=== PATIENT | female | born 1985 | race Caucasian/White ===

== ENCOUNTER 2016-11-12 17:56 | Outpatient (CLI) | payer SELFPAY ==
[2016-11-12 18:36] VITALS: BP 99/53
[2016-11-12] MEDS ORDERED: LACTATED RINGERS 500 ML IV ONE (18:44)
--- NOTE | 2016-11-13 07:52 | Ultrasound Report ---
ULTRASOUND BIOPHYSICAL PROFILE: History: labor, low heart tones Technique: Transabdominal ultrasound with Doppler interrogation. 2 - breathing movements 2 - movements 2 - posture and tone 2 - Qualitative amniotic fluid volume 8 - TOTAL SCORE OF POSSIBLE 8 Heart Rate (bpm) 127
== END 2016-11-12 20:20 | disposition home or self-care (01) ==
LOC: TRG 17:56
PROVIDERS: ATTEND Obstetrics & Gynecology
DX: O47.03 False labor before 37 completed weeks of gestation, third trimester (principal); Z3A.30 30 weeks gestation of pregnancy
CPT/HCPCS: 76819

== ENCOUNTER 2017-01-13 00:57 | Outpatient (CLI) | payer OTHER ==
[2017-01-13 01:25] VITALS: BP 116/71
[2017-01-13] MEDS ORDERED: VISTARIL PO ONE (03:31)
== END 2017-01-13 03:41 | disposition home or self-care (01) ==
LOC: TRG 00:57
PROVIDERS: ATTEND Obstetrics & Gynecology Gynecology
DX: O47.1 False labor at or after 37 completed weeks of gestation (principal); Z3A.39 39 weeks gestation of pregnancy
CPT/HCPCS: Q0177

== ENCOUNTER 2017-01-13 05:43 | Inpatient (IN) | payer OTHER ==
[2017-01-13] MEDS ORDERED: LACTATED RINGERS 1,000 ML ONE ×2 (06:33→06:39)
[2017-01-13] MEDS ORDERED: MINERAL OIL PO PRN (06:45)
[2017-01-13] MEDS ORDERED: BRETHINE IVP PRN (06:45)
[2017-01-13] MEDS ORDERED: ePHEDrine SULFATE IV PRN ×2 (06:45→08:20)
[2017-01-13] MEDS ORDERED: SUBLIMAZE IV PRN (06:45)
[2017-01-13] MEDS ORDERED: ZOFRAN IV PRN (06:45)
[2017-01-13] MEDS ORDERED: XYLOCAINE 2% INFILTRATI ONE (06:45)
[2017-01-13] MEDS ORDERED: BRETHINE SUB-Q PRN (06:45)
--- NOTE | 2017-01-13 06:45 | History and Physical Report ---
History of Present Illness Date of examination: 01/13/17 Date of admission: 01/13/17 06:25 Chief complaint: Painful contractions History of present illness: 31-year-old 001 at 39 weeks presents in active labor, she is a [facility] patient. course has been unremarkable, she is GBS negative and passed her 1 hour GTT Past History Past Medical History: no pertinent history Past Surgical History: cholecystectomy [employer] History: denies: cancer, chlamydia, gonorrhea, hepatitis B, hepatitis C, herpes, HIV, syphilis Social history: , full code. denies: smoking, alcohol abuse, prescription drug abuse, IV drug use - Obstetrical History Expected Date of Delivery: 01/18/17 Actual Gestation: 39 Week(s) 2 Day(s) : 2 Para: 1 (7 pound infant 6 years ago) Medications and Allergies Allergies Allergy/AdvReac Type Severity Reaction Status Date / Time No Known Allergies Allergy Verified 06/08/14 19:35 Home Medications Medication Instructions Recorded Confirmed Last Taken Type Acetaminophen/Codeine 1 tab PO Q6H PRN #14 tab 06/09/14 Unknown Rx [Acetaminophen-Codeine #3 TAB] Review of Systems Constitutional: no fever, no chills, no chronic headaches Eyes: no blurred vision, no photophobia Cardiovascular: no chest pain, no orthopnea, no lightheadedness, no shortness of breath, no dyspnea on exertion, no high blood pressure, no decreased exercise tolerance Respiratory: no hemoptysis, no shortness of breath, no dyspnea on exertion Gastrointestinal: abdominal pain, no nausea, no vomiting, no indigestion Genitourinary: contractions, no vaginal bleeding, no vaginal discharge, no leakage of fluid - Vital Signs Vital signs: Vital Signs Pulse Pulse Ox 89 98 01/13/17 05:50 01/13/17 05:50 Temp Pulse Resp BP Pulse Ox 98.3 F 89 121/76 97 01/13/17 06:03 01/13/17 06:12 01/13/17 05:51 01/13/17 06:12 - Physical Exam Cardiovascular: Regular rate Lungs: Positive: Clear to auscultation, Normal air movement Abdomen: Positive: normal appearance, soft. Negative: distention, tenderness, guarding, rigidity Genitourinary (Female): Positive: normal external genitalia Uterus: Positive: enlarged (EFW ~ 3600). Negative: tender Extremities: Positive: normal - Obstetrical FHR: category 1 Cervical Dilatation: 6 (Per RN Exam) Results All other labs normal. Assessment and Plan A: 31-year-old she 2 P1 001 at 39 weeks in active labor -Cat 1 tracing P: -Admit -Routine labs -Epidural prn -Anticipate - Patient Problems (1) 39 weeks gestation of Current Visit: Yes Status: Acute (2) Active labor at term Current Visit: Yes Status: Acute
[2017-01-13] MEDS ORDERED: PITOCin/NS 20 UNIT/1000ML DRIP 20 UNITS/1,000 ML BAG IV SCH ×2 (07:00→12:00)
[2017-01-13] MEDS ORDERED: PITOCin/NS 30 UNIT/500ML 30 UNITS/500 ML BAG IV SCH ×2 (07:00)
[2017-01-13 07:27] LABS: Hematocrit 37.6 % (30.3-42.9); Mean Corpuscular HGB Conc 35 % (30-34); Mean Corpuscular Hemoglobin 34 pg (28-32); Mean Corpuscular Volume 98 fl (79-97); Platelet Count 208 K/mm3 (140-440); Red Blood Count 3.83 M/mm3 (3.65-5.03); Red Cell Distribution Width 13.5 % (13.2-15.2)
[2017-01-13] MEDS: LACTATED RINGERS 1,000 ML IV SCH ×3 (07:44→09:59)
[2017-01-13] MEDS ORDERED: ePHEDrine SULFATE ONE (07:52)
[2017-01-13] MEDS ORDERED: NARCAN 2 MG/2 ML IV PRN (08:20)
--- NOTE | 2017-01-13 08:20 | Anesthesia Consultation ---
Anesthesia Consult and Med Hx Date of service: 01/13/17 - Airway Anesthetic Teeth Evaluation: Good ROM Head & Neck: Adequate Mental/Hyoid Distance: Adequate Mallampati Class: Class II Intubation Access Assessment: Probably Good - Pulmonary Exam CTA: Yes - Cardiac Exam Cardiac Exam: RRR - Pre-Operative Health Status ASA Pre-Surgery Classification: ASA3 Proposed Anesthetic Plan: Epidural, Spinal - Pulmonary Hx Asthma: No COPD: No Hx Pneumonia: No - Cardiovascular System Hx Hypertension: No Hx Heart Attack/AMI: No - Central Nervous System Hx Seizures: No Hx Psychiatric Problems: No - Endocrine Hx Renal Disease: No Hx End Stage Renal Disease: No Hx Hypothyroidism: No Hx Hyperthyroidism: No - Hematic Hx Anemia: No Hx Sickle Cell Disease: No - Other Systems Hx Alcohol Use: No Hx Cancer: No Hx Obesity: Yes (morbid, BMI > 40) - Additional Comments Anesthesia Medical History Comments: +IUP
[2017-01-13] MEDS ORDERED: fentaNYL-BUPIV 2 MCG/ML-0.125% 200 MCG/100 ML BAG EPIDURAL SCH (09:00)
--- NOTE | 2017-01-13 09:45 | Progress Note ---
Assessment and Plan - Patient Problems (1) 39 weeks gestation of Current Visit: Yes Status: Acute (2) Active labor at term Current Visit: Yes Status: Acute Subjective - Subjective Date of service: 01/13/17 Patient reports: new complaints, contractions, no vaginal bleeding Objective - Vital Signs Vital Signs: Vital Signs - 12hr 01/13/17 01/13/17 01/13/17 05:50 05:51 05:52 Temperature Pulse Rate 89 88 92 H Respiratory Rate Blood Pressure 121/76 O2 Sat by Pulse 98 97 97 Oximetry 01/13/17 01/13/17 01/13/17 05:57 06:02 06:03 Temperature 98.3 F Pulse Rate 83 79 Respiratory Rate Blood Pressure O2 Sat by Pulse 97 95 Oximetry 01/13/17 01/13/17 01/13/17 06:07 06:12 07:37 Temperature Pulse Rate 81 89 91 H Respiratory Rate Blood Pressure O2 Sat by Pulse 97 97 96 Oximetry 01/13/17 01/13/17 01/13/17 07:42 07:44 07:47 Temperature Pulse Rate 74 75 86 Respiratory Rate Blood Pressure O2 Sat by Pulse 96 93 99 Oximetry 01/13/17 01/13/17 01/13/17 07:52 07:54 07:57 Temperature Pulse Rate 82 76 Respiratory Rate Blood Pressure 109/59 O2 Sat by Pulse 96 78 L 98 Oximetry 01/13/17 01/13/17 01/13/17 08:00 08:02 08:03 Temperature 97.6 F Pulse Rate 78 83 87 Respiratory 18 Rate Blood Pressure 109/58 113/60 110/59 O2 Sat by Pulse 98 99 Oximetry 01/13/17 01/13/17 01/13/17 08:05 08:07 08:09 Temperature Pulse Rate 82 82 85 Respiratory Rate Blood Pressure 113/65 120/63 111/59 O2 Sat by Pulse 98 Oximetry 01/13/17 01/13/17 01/13/17 08:11 08:12 08:13 Temperature Pulse Rate 86 87 96 H Respiratory Rate Blood Pressure 104/58 98/50 O2 Sat by Pulse 98 Oximetry 01/13/17 01/13/17 01/13/17 08:15 08:16 08:17 Temperature Pulse Rate 88 67 60 Respiratory Rate Blood Pressure 96/47 82/41 83/42 O2 Sat by Pulse 96 Oximetry 0801/13/17 01/13/17 08:19 08:21 08:22 Temperature Pulse Rate 100 H 90 75 Respiratory Rate Blood Pressure 98/50 105/56 O2 Sat by Pulse 97 Oximetry 01/13/17 01/13/17 01/13/17 08:23 08:25 08:26 Temperature Pulse Rate 82 80 80 Respiratory 20 Rate Blood Pressure 103/55 104/58 104/58 O2 Sat by Pulse Oximetry 01/13/17 01/13/17 01/13/17 08:27 08:28 08:29 Temperature Pulse Rate 85 83 86 Respiratory Rate Blood Pressure 86/43 88/46 88/43 O2 Sat by Pulse 99 Oximetry 01/13/17 01/13/17 01/13/17 08:30 08:32 08:37 Temperature Pulse Rate 85 87 108 H Respiratory Rate Blood Pressure 89/42 O2 Sat by Pulse 98 96 Oximetry 01/13/17 01/13/17 01/13/17 08:42 08:43 08:47 Temperature Pulse Rate 95 H 98 H 95 H Respiratory Rate Blood Pressure 88/52 O2 Sat by Pulse 99 99 Oximetry 01/13/17 01/13/17 01/13/17 08:51 08:52 08:57 Temperature Pulse Rate 99 H 90 92 H Respiratory Rate Blood Pressure 87/53 O2 Sat by Pulse 79 L 99 99 Oximetry 01/13/17 01/13/17 01/13/17 08:58 09:02 09:14 Temperature Pulse Rate 96 H 92 H 87 Respiratory Rate Blood Pressure 81/43 109/53 O2 Sat by Pulse 99 Oximetry 01/13/17 09:29 Temperature Pulse Rate 82 Respiratory Rate Blood Pressure 93/56 O2 Sat by Pulse Oximetry - Exam FHR: category 1 Cervical Dilatation: 10 station: -1 - Labs Labs: Abnormal Labs 01/13/17 06:32 MCV 98 H MCH 34 H MCHC 35 H Laboratory Results - last 24 hr 01/13/17 01/13/17 06:32 06:32 WBC 11.0 RBC 3.83 Hgb 13.0 Hct 37.6 MCV 98 H MCH 34 H MCHC 35 H RDW 13.5 Plt Count 208 Blood Type O POSITIVE Antibody Screen Negative
[2017-01-13] MEDS ORDERED: CYTOTEC ONE (10:54)
[2017-01-13] MEDS ORDERED: METHERGINE IM ONE (10:54)
--- NOTE | 2017-01-13 11:05 | Procedure Note ---
OB Delivery Note - Delivery Date of Delivery: 01/13/17 Surgeon: JESSICA SANCHEZ Estimated blood loss: 500cc - Vaginal Delivery presentation: vertex Delivery position: OA Intrapartum events: none Delivery augmentation: rupture of membranes, pitocin Delivery monitor: external FHT, external uterine Route of delivery: Delivery placenta: spontaneous Delivery cord: 3 umbilical vessels Episiotomy: none Delivery laceration: none Anesthesia: epidural - A at 1 minute: 8 at 5 minutes: 9 Gender: Male (Time of delivery was 10:48 AM, weight was 10 pounds 1 or 4567 g)
[2017-01-13] MEDS ORDERED: TYLENOL PO PRN (11:06)
[2017-01-13] MEDS ORDERED: LANSINOH TP PRN (11:06)
[2017-01-13] MEDS ORDERED: BENADRYL PO PRN (11:06)
[2017-01-13] MEDS ORDERED: PHENERGAN PR PRN (11:06)
[2017-01-13] MEDS ORDERED: MILK OF MAGNESIA PO PRN (11:06)
[2017-01-13] MEDS ORDERED: NORCO 5/325 PO PRN (11:06)
[2017-01-13] MEDS ORDERED: TUCKS PAD TP PRN (11:06)
[2017-01-13] MEDS ORDERED: DULCOLAX PR PRN (11:06)
[2017-01-13] MEDS ORDERED: PHENERGAN PO PRN (11:06)
[2017-01-13] MEDS ORDERED: CYTOTEC PR ONE (11:06)
[2017-01-13] MEDS ORDERED: SODIUM CHLORIDE FLUSH SYRINGE 10 ML IV NR (12:00)
[2017-01-13] MEDS: MOTRIN PO SCH ×3 (12:13→23:57)
[2017-01-13] MEDS: SENOKOT S PO SCH (16:12)
[2017-01-13] MEDS: FEOSOL PO SCH (23:57)
[2017-01-13] MEDS: COLACE PO SCH (23:57)
[2017-01-14 00:51] LABS: Hematocrit 32.9 % (30.3-42.9); Hemoglobin 11.3 gm/dl (10.1-14.3)
[2017-01-14] MEDS: SENOKOT S PO SCH ×2 (01:10→23:59)
[2017-01-14] MEDS: MOTRIN PO SCH ×4 (05:46→23:57)
--- NOTE | 2017-01-14 10:46 | Progress Note ---
Assessment and Plan - Patient Problems (1) (normal spontaneous vaginal delivery) Onset Date: 01/14/17 Current Visit: Yes Status: Resolved Plan to address problem: A: S/P - PPD #1 Doing well P: May go home today Subjective - Subjective Date of service: 01/14/17 Principal diagnosis: s/p - PPD #1 Interval history: Pt is feeling well without complaints. Bleeding improved. Patient reports: appetite normal, voiding normally, pain well controlled, flatus , ambulating normally [place]: doing well, nursing well Objective - Vital Signs Latest vital signs: Vital Signs Temp Pulse Resp BP 01/14/17 08:31 98.0 F 76 28 H 92/60 01/14/17 00:25 98.5 F 65 18 98/54 01/13/17 20:10 98.4 F 62 20 109/57 01/13/17 16:38 98.9 F 82 20 119/55 01/13/17 12:48 98.5 F 75 20 116/65 01/13/17 12:28 98.5 F 82 20 122/58 01/13/17 12:26 75 122/58 01/13/17 11:58 97 H 119/71 01/13/17 11:43 96 H 20 124/68 01/13/17 11:30 100 H 20 166/61 01/13/17 11:28 100 H 116/61 01/13/17 11:16 100 H 116/59 01/13/17 11:00 99.2 F 97 H 20 107/57 01/13/17 10:58 97 H 107/57 01/13/17 10:54 94 H 106/57 01/13/17 10:51 90 119/56 Intake and Output 01/13/17 01/14/17 01/14/17 22:59 06:59 14:59 Intake Total 690 340 Output Total 720 Balance -30 340 Intake: IV 250 PITOCin/NS 20 UNIT/1000ML 250 DRIP 20 units In 1,000 ml @ 125 mls/hr IV DIRECT [place] Rx#:[id number] Oral 440 Intake, Free Water 340 Output: Urine 720 Void 720 Other: Total, Intake Amount 200 Total, Output Amount 720 # Voids Void 1 1 - Exam Breasts: Present: deferred Cardiovascular: Present: Regular rate Lungs: Present: Clear to auscultation Abdomen: Present: normal appearance, soft Uterus: Present: normal, firm, fundal height below umbilicus Extremities: Present: normal - Labs Labs: Laboratory Tests 01/13/17 01/13/17 01/14/17 06:32 06:32 00:05 WBC 11.0 RBC 3.83 Hgb 13.0 11.3 Hct 37.6 32.9 MCV 98 H MCH 34 H MCHC 35 H RDW 13.5 Plt Count 208 Blood Type O POSITIVE Antibody Screen Negative
[2017-01-14] MEDS: COLACE PO SCH ×2 (10:47→21:36)
[2017-01-14] MEDS: PRENATAL VITAMIN PO SCH (10:47)
[2017-01-14] MEDS: FEOSOL PO SCH ×2 (10:47→21:36)
--- NOTE | 2017-01-14 17:22 | Discharge Summary ---
Providers - Providers Date of Admission: 01/13/17 06:25 Date of discharge: 01/15/17 Attending physician: JESSICA SANCHEZ Primary care physician: JESSICA SANCHEZ Hospitalization Reason for admission: active labor, IUP at term Delivery: Episiotomy: none Laceration: none Other procedures: none complications: none Discharge diagnosis: IUP at term delivered [place] baby: male Hospital course: Unremarkable. Condition at discharge: Good Disposition: DC-01 TO HOME OR SELFCARE - Discharge Diagnoses (1) (normal spontaneous vaginal delivery) Status: Resolved Plan - Discharge Medications Prescriptions: Ibuprofen [Motrin 600 MG tab] 600 mg PO Q8H PRN #30 tablet PRN Reason: Pain Multivitamin with Iron [Multivitamins with Iron] 1 each PO DAILY #30 tablet - Provider Discharge Summary Activity: routine, no sex for 6 weeks, no heavy lifting 4 weeks, no strenuous exercise Diet: routine Instructions: routine Additional instructions: [] Smoking cessation referral if applicable(refer to patient education folder for contact #) [] Refer to [facility] Booklet Call your doctor immediately for: * Fever > 100.5 * Heavy vaginal bleeding ( >1 pad per hour) * Severe persistent headache * Shortness of breath * Reddened, hot, painful area to leg or breast * Drainage or odor from incision. * Keep incision clean and dry at all times and follow doctor's instructions regarding bathing/showering - Follow up plan Follow up: JESSICA SANCHEZ MD [Primary Care Provider] - 6 Weeks
[2017-01-15] MEDS: MOTRIN PO SCH ×3 (06:26→18:08)
[2017-01-15] MEDS: PRENATAL VITAMIN PO SCH (10:17)
[2017-01-15] MEDS: FEOSOL PO SCH (10:17)
[2017-01-15] MEDS: COLACE PO SCH (10:17)
[2017-01-15] MEDS: SENOKOT S PO SCH (18:07)
[2017-01-16 08:02] VITALS: BP 103/55
== END 2017-01-15 23:00 | disposition home or self-care (01) | DRG 775 ==
LOC: TRG 05:43 → LD 06:25 → OB 12:40
PROVIDERS: ADMIT Obstetrics & Gynecology Gynecology; ATTEND Obstetrics & Gynecology Gynecology
PROC: 10E0XZZ Delivery of Products of Conception, External Approach (ICD-10-PCS; principal; 2017-01-13)
PROC: 00HU33Z Insertion of Infusion Device into Spinal Canal, Percutaneous Approach (ICD-10-PCS; 2017-01-13)
PROC: 3E0R3CZ (ICD-10-PCS; 2017-01-13)
DX: O99.214 Obesity complicating childbirth (principal); Z68.41 Body mass index [BMI] 40.0-44.9, adult; E66.01 Morbid (severe) obesity due to excess calories; Z3A.39 39 weeks gestation of pregnancy; Z37.0 Single live birth
CPT/HCPCS: 36415; 85014; 85018; 85027; 86850; 86900; 86901; 99211; G0463; J2210; J2405; J2590; J3010; J7120